=== PATIENT | male | born 1980 | race Caucasian/White ===

== ENCOUNTER 2023-11-26 10:44 | Inpatient (IN) | payer OTHER ==
[~2023-11-26] VITALS: Ht 172.7 cm; Wt 116.7 kg
[2023-11-26] MEDS ORDERED: BLOOD SUGAR DIAGNOSTIC STRIP TEST SCH (11:00)
[2023-11-26] MEDS ORDERED: SODIUM PHOSPHATE 15 MMOL in SODIUM CHLORIDE 0.9% 245 ML IV PRN ×2 (11:00→12:45)
[2023-11-26] MEDS ORDERED: MAGNESIUM 2 G PREMIX 50 ML IV PRN (11:00)
[2023-11-26] MEDS ORDERED: DEXT 5%/0.9% NACL 1,000 ML IV SCH (11:00)
[2023-11-26] MEDS: SODIUM CHLORIDE 0.9% 1,000 ML IV SCH ×2 (11:00→13:43)
[2023-11-26] MEDS ORDERED: KCL 20MEQ/100ML PREMIX 100 ML IV PRN (11:00)
[2023-11-26] MEDS ORDERED: DEXTROSE 50% WATER 50ML SYRINGE IV PRN ×2 (11:00→12:45)
[2023-11-26] MEDS ORDERED: POTASSIUM CHLORIDE 40 MEQ in SODIUM CHLORIDE 0.9% 230 ML IV PRN (11:00)
[2023-11-26] MEDS ORDERED: BLOOD SUGAR DIAGNOSTIC STRIP TEST PRN ×2 (11:00→12:45)
[2023-11-26 11:24] LABS: BG BASE EXCESS -27.8 mmol/L (-2.0-3.0); BG CARBOXYHEMOGLOBIN 0.1 % (0.5-1.5); BG DEOXYHEMOGLOBIN 0.9 % (0.0-5.0); BG FRACTION INSPIRED OXYGEN 100; BG HCO3 ACT 3.5 mmol/L (21.0-28.0); BG METHEMOGLOBIN 0.2 % (0.5-1.5); BG OXYGEN SATURATION 99.1 % (94.0-98.0); BG OXYHEMOGLOBIN 98.8 % (94.0-98.0); BG PCO2 17.8 mmHg (35.0-48.0); BG PH 6.914 (7.350-7.450); BG PO2 216.8 mmHg (83.0-108.0); BG SAMPLE SITE LEFT RADIAL; BG TOTAL HEMOGLOBIN 12.4 g/dL (13.5-17.5); BG VENT MODE MASK - NRB
[2023-11-26 12:02] LABS: CHLORIDE 94 mEq/L (98-107); POTASSIUM 5.3 mEq/L (3.5-5.1); SODIUM 129 mEq/L (136-145)
[2023-11-26 12:03] LABS: CALCIUM 8.8 mg/dL (8.7-10.4)
[2023-11-26 12:08] LABS: CREATININE 2.1 mg/dL (0.6-1.3); UREA NITROGEN BLOOD 12 mg/dL (9-23)
[2023-11-26] MEDS ORDERED: INSULIN REGULAR 100U/100ML PMX 100 ML IV SCH (12:15)
[2023-11-26] MEDS: INSULIN REGULAR (HUMULIN R) 1000UNITS/10ML VIAL IV NR (12:22)
[2023-11-26 12:32] LABS: CARBON DIOXIDE < 10 mEq/L (21-32); GLUCOSE 760 mg/dL (70-105); PHOSPHORUS 8.3 mg/dL (2.5-4.9)
[2023-11-26 12:39] LABS: BETA HYDROXYBUTYRATE 12.8 mMol/L (0.0-0.3)
[2023-11-26] MEDS ORDERED: ACETAMINOPHEN 325MG TABLET PO PRN ×2 (12:45)
[2023-11-26] MEDS ORDERED: SODIUM CHLORIDE 0.45% 1,000 ML IV SCH (12:45)
[2023-11-26] MEDS ORDERED: CLONIDINE 0.1MG TABLET PO PRN (12:45)
[2023-11-26] MEDS: DEXT 5%/0.9% NACL 1,000 ML IV SCH (12:45)
[2023-11-26] MEDS ORDERED: MAGNESIUM/ALUMINUM HYDROXIDE/SIMETHICONE 30ML UDC PO PRN (12:45)
[2023-11-26] MEDS ORDERED: IPRATROPIUM/ALBUTEROL 0.5-3(2.5)MG/3ML NEB HHN PRN (12:45)
[2023-11-26] MEDS ORDERED: INSULIN REGULAR (DRIP) 100 UNITS in SODIUM CHLORIDE 0.9% 99 ML IV SCH (12:45)
[2023-11-26 12:54] LABS: LACTIC ACID 4.5 mmol/L (0.4-2.0)
[2023-11-26] MEDS: INSULIN REGULAR 100U/100ML PMX 100 ML IV SCH (13:14)
[2023-11-26] MEDS: BLOOD SUGAR DIAGNOSTIC STRIP TEST SCH (13:15)
[2023-11-26] MEDS: SODIUM BICARBONATE 8.4% 50MEQ/50ML SYR IV NR ×2 (13:24→16:11)
[2023-11-26 14:09] LABS: BG BASE EXCESS -27.8 mmol/L (-2.0-3.0); BG CARBOXYHEMOGLOBIN 0.3 % (0.5-1.5); BG DEOXYHEMOGLOBIN 3.4 % (0.0-5.0); BG FRACTION INSPIRED OXYGEN 32; BG HCO3 ACT 3.6 mmol/L (21.0-28.0); BG METHEMOGLOBIN 0.1 % (0.5-1.5); BG OXYGEN SATURATION 96.6 % (94.0-98.0); BG OXYHEMOGLOBIN 96.2 % (94.0-98.0); BG PCO2 18.2 mmHg (35.0-48.0); BG PH 6.909 (7.350-7.450); BG PO2 120.7 mmHg (83.0-108.0); BG SAMPLE SITE RIGHT RADIAL; BG VENT MODE NASAL CANNULA
[2023-11-26] MEDS: MAGNESIUM 2 G PREMIX 50 ML IV PRN (14:19)
[2023-11-26 14:32] LABS: CHLORIDE 97 mEq/L (98-107); POTASSIUM 4.8 mEq/L (3.5-5.1); SODIUM 131 mEq/L (136-145)
[2023-11-26 14:33] LABS: CALCIUM 8.1 mg/dL (8.7-10.4)
[2023-11-26 14:38] LABS: CREATININE 2.3 mg/dL (0.6-1.3); UREA NITROGEN BLOOD 12 mg/dL (9-23)
[2023-11-26] MEDS: HYDROCODONE/ACETAMINOPHEN 5/325MG TABLET PO PRN (14:42)
[2023-11-26 14:52] LABS: CARBON DIOXIDE < 10 mEq/L (21-32); GLUCOSE 706 mg/dL (70-105)
[2023-11-26] MEDS ORDERED: NALOXONE HCL 0.4MG/ML VIAL IV PRN (15:00)
[2023-11-26] MEDS: SODIUM CHLORIDE 0.9% 500 ML IV ONE (16:11)
[2023-11-26 16:23] LABS: BASOPHILS % 0.7 % (0.0-2.0); DIFFERENTIAL COMMENT 0; EOSINOPHILS % 0.1 % (0.0-5.0); HEMOGLOBIN. 11.2 g/dL (14.0-18.0); MEAN CORPUSCULAR HEMOGLOBIN 31.1 pg (28.0-32.0); MEAN CORPUSCULAR HGB CONC 29.4 g/dL (31.0-37.0); MEAN CORPUSCULAR VOLUME 105.7 fL (80.0-94.0); MEAN PLATELET VOLUME 7.8 fl (7.4-10.4); MONOCYTES % 6.6 % (2.0-8.0); NEUTROPHILS % 83.6 % (40.0-76.0); PLATELET 374 x1000/uL (130-400); RED CELL DISTRIBUTION WIDTH 16.3 % (11.6-14.6); WHITE BLOOD COUNT 27.5 x1000/uL (4.5-11.0)
[2023-11-26 16:47] LABS: HEPATITIS B SURFACE ANTIGEN NEGATIVE (Negative)
[2023-11-26] MEDS: SODIUM BICARBONATE 150 MEQ in SODIUM CHLORIDE 0.45% 1,000 ML IV NR (17:00)
[2023-11-26 17:08] LABS: CHLORIDE 100 mEq/L (98-107); HEPATITIS A AB IGM NEGATIVE (Negative); POTASSIUM 4.6 mEq/L (3.5-5.1); SODIUM 133 mEq/L (136-145)
[2023-11-26 17:09] LABS: HEPATITIS B CORE AB IGM NEGATIVE (Negative); HEPATITIS C AB NON REACTIVE (Neg) (Negative)
[2023-11-26 17:14] LABS: CREATININE 2.4 mg/dL (0.6-1.3); UREA NITROGEN BLOOD 13 mg/dL (9-23)
[2023-11-26 17:18] LABS: CARBON DIOXIDE < 10 mEq/L (21-32); GLUCOSE 641 mg/dL (70-105)
[2023-11-26 17:19] LABS: PHOSPHORUS 8.5 mg/dL (2.5-4.9)
[2023-11-26 17:40] VITALS: BP 87/36; PULSE 83; RESP 22; TEMP 36.6696; O2SAT 97
[2023-11-26 17:45] VITALS: BP 87/36; PULSE 83; O2SAT 99
[2023-11-26 18:42] LABS: BG BASE EXCESS -23.6 mmol/L (-2.0-3.0); BG CARBOXYHEMOGLOBIN 0.2 % (0.5-1.5); BG FRACTION INSPIRED OXYGEN 32; BG HCO3 ACT 5.7 mmol/L (21.0-28.0); BG METHEMOGLOBIN 0.3 % (0.5-1.5); BG OXYHEMOGLOBIN 96.5 % (94.0-98.0); BG PCO2 21.8 mmHg (35.0-48.0); BG PH 7.032 (7.350-7.450); BG PO2 103.4 mmHg (83.0-108.0); BG SAMPLE SITE RIGHT RADIAL; BG TOTAL HEMOGLOBIN 12.6 g/dL (13.5-17.5); BG VENT MODE NASAL CANNULA
[2023-11-26 18:45] VITALS: BP 93/45; PULSE 83; O2SAT 99
[2023-11-26 19:45] VITALS: BP 103/69; PULSE 97; O2SAT 100
[2023-11-26 20:45] VITALS: BP 99/70; PULSE 94; O2SAT 100
[2023-11-26 20:46] VITALS: BP 99/70; PULSE 94; RESP 17; TEMP 36.6696; O2SAT 100
[2023-11-26 23:35] LABS: CHLORIDE 100 mEq/L (98-107); POTASSIUM 3.5 mEq/L (3.5-5.1); SODIUM 136 mEq/L (136-145)
[2023-11-26 23:36] LABS: CALCIUM 7.7 mg/dL (8.7-10.4); CARBON DIOXIDE 22 mEq/L (21-32)
[2023-11-26 23:41] LABS: UREA NITROGEN BLOOD 8 mg/dL (9-23)
[2023-11-26 23:43] LABS: PHOSPHORUS 2.3 mg/dL (2.5-4.9)
[2023-11-27 00:02] LABS: CREATININE 1.6 mg/dL (0.6-1.3); GLUCOSE 196 mg/dL (70-105)
[2023-11-27 06:41] LABS: BASOPHILS % 0.1 % (0.0-2.0); EOSINOPHILS % 0.5 % (0.0-5.0); HEMATOCRIT. 31.1 % (42.0-52.0); HEMOGLOBIN. 10.5 g/dL (14.0-18.0); LYMPHOCYTES % 19.5 % (20.0-50.0); MEAN CORPUSCULAR HEMOGLOBIN 31.4 pg (28.0-32.0); MEAN CORPUSCULAR HGB CONC 33.8 g/dL (31.0-37.0); MEAN PLATELET VOLUME 6.9 fl (7.4-10.4); MONOCYTES % 7.4 % (2.0-8.0); NEUTROPHILS % 72.5 % (40.0-76.0); PLATELET 208 x1000/uL (130-400); RED BLOOD CELL COUNT 3.34 mill/uL (4.7-6.1); RED CELL DISTRIBUTION WIDTH 14.7 % (11.6-14.6); WHITE BLOOD COUNT 8.7 x1000/uL (4.5-11.0)
[2023-11-27 06:48] LABS: CALCIUM 7.7 mg/dL (8.7-10.4); CARBON DIOXIDE 29 mEq/L (21-32); CHLORIDE 104 mEq/L (98-107); SODIUM 139 mEq/L (136-145)
[2023-11-27 06:53] LABS: CREATININE 1.3 mg/dL (0.6-1.3); GLUCOSE 163 mg/dL (70-105); TRIGLYCERIDE 158 mg/dL (0-150)
[2023-11-27 06:54] LABS: LDL CHOLESTEROL 46 mg/dL (5-100); UREA NITROGEN BLOOD 7 mg/dL (9-23)
[2023-11-27 06:55] LABS: CHOLESTEROL 100 mg/dL (<200); HDL CHOLESTEROL 20 mg/dL (>55)
[2023-11-27 06:58] LABS: THYROID STIMULATING HORMONE 2.09 uIU/mL (0.55-4.78)
[2023-11-27] MEDS: POTASSIUM CHLORIDE 40 MEQ in DEXT 5% WATER 230 ML IV SCH (09:27)
[2023-11-27] MEDS: ENOXAPARIN 40MG/0.4ML SYR SUBCUT SCH (09:34)
[2023-11-27] MEDS ORDERED: DEXTROSE 50% WATER 50ML SYRINGE IV PRN (10:45)
[2023-11-27] MEDS: SODIUM CHLORIDE 0.9% 100 ML IV ONE (11:02)
[2023-11-27 12:00] VITALS: BP 115/71; PULSE 95; RESP 18; TEMP 36.50292; O2SAT 100
[2023-11-27] MEDS: BLOOD SUGAR DIAGNOSTIC STRIP TEST SCH (13:00)
[2023-11-27] MEDS: INSULIN LISPRO 100 UNITS/ML SUBCUT SCH (13:10)
[2023-11-27 16:00] VITALS: BP 106/63; PULSE 92; RESP 18; TEMP 36.50292; O2SAT 100
[2023-11-27 17:11] LABS: PHOSPHORUS 2.8 mg/dL (2.5-4.9)
[2023-11-27] MEDS: MAGNESIUM 2 G PREMIX 50 ML IV NR ×2 (17:49→21:40)
[2023-11-27] MEDS: POTASSIUM CHLORIDE 20MEQ TABLET SR PO NR (17:49)
[2023-11-27] MEDS: INSULIN GLARGINE 100 UNITS/ML SUBCUT NR (17:50)
[2023-11-27 18:08] VITALS: BP 115/71; PULSE 95; RESP 18; TEMP 36.5292
[2023-11-27] MEDS ORDERED: MAGNESIUM 4 G PREMIX 100 ML IV ONE (18:15)
[2023-11-27 20:00] VITALS: BP 110/57; PULSE 96; RESP 18; TEMP 36.72516; O2SAT 93
[2023-11-28] VITALS: BP 108/65; PULSE 96; RESP 16; TEMP 36.61404; O2SAT 95
[2023-11-28 04:00] VITALS: BP 115/68; PULSE 85; RESP 18; TEMP 36.00288; O2SAT 92
[2023-11-28] MEDS: ONDANSETRON HCL 4MG/2ML INJ IV PRN (05:58)
[2023-11-28 07:06] LABS: CARBON DIOXIDE 30 mEq/L (21-32); CHLORIDE 106 mEq/L (98-107); POTASSIUM 3.2 mEq/L (3.5-5.1); SODIUM 142 mEq/L (136-145)
[2023-11-28 07:07] LABS: BASOPHILS % 0.4 % (0.0-2.0); CALCIUM 8.5 mg/dL (8.7-10.4); HEMATOCRIT. 29.4 % (42.0-52.0); HEMOGLOBIN. 9.6 g/dL (14.0-18.0); LYMPHOCYTES % 44.8 % (20.0-50.0); MEAN CORPUSCULAR HEMOGLOBIN 30.7 pg (28.0-32.0); MEAN CORPUSCULAR HGB CONC 32.7 g/dL (31.0-37.0); MEAN CORPUSCULAR VOLUME 93.9 fL (80.0-94.0); MEAN PLATELET VOLUME 7.3 fl (7.4-10.4); MONOCYTES % 7.3 % (2.0-8.0); NEUTROPHILS % 45.5 % (40.0-76.0); PLATELET 178 x1000/uL (130-400); RED BLOOD CELL COUNT 3.13 mill/uL (4.7-6.1); RED CELL DISTRIBUTION WIDTH 14.9 % (11.6-14.6); WHITE BLOOD COUNT 4.8 x1000/uL (4.5-11.0)
[2023-11-28 07:12] LABS: GLUCOSE 118 mg/dL (70-105)
[2023-11-28] MEDS ORDERED: POTASSIUM CHLORIDE 20MEQ TABLET SR PO ONE (07:30)
[2023-11-28 07:31] LABS: UREA NITROGEN BLOOD < 5 mg/dL (9-23)
[2023-11-28 08:00] VITALS: BP 125/62; PULSE 90; RESP 18; TEMP 36.61404; O2SAT 96
[2023-11-28] MEDS: INSULIN GLARGINE 100 UNITS/ML SUBCUT SCH (10:14)
[2023-11-28] MEDS: POTASSIUM CHLORIDE 20MEQ TABLET SR PO NR (11:45)
[2023-11-28 12:05] VITALS: BP 125/60; PULSE 90; TEMP 97.9; O2SAT 95
[2023-11-28] MEDS ORDERED: ENOXAPARIN 30MG/0.3ML SYR SUBCUT SCH (21:00)
== END 2023-11-28 13:00 | disposition home or self-care (01) | DRG 871 ==
LOC: ER 10:44 → EDBEDREQSVC 12:13 → EDBEDREQ 12:13 → EDBEDREQTM 12:13 → EDBEDREQSVC 11-27 10:42 → 7WST 11-27 13:05
PROVIDERS: ADMIT Internal Medicine; ATTEND Internal Medicine
PROC: 5A1D70Z Performance of Urinary Filtration, Intermittent, Less than 6 Hours Per Day (ICD-10-PCS; principal; 2023-11-26)
DX: A41.9 Sepsis, unspecified organism (principal); E11.10 Type 2 diabetes mellitus with ketoacidosis without coma; N18.6 End stage renal disease; E87.3 Alkalosis; I12.0 Hypertensive chronic kidney disease with stage 5 chronic kidney disease or end stage renal disease; E83.39 Other disorders of phosphorus metabolism; E87.5 Hyperkalemia; Z99.2 Dependence on renal dialysis; E11.22 Type 2 diabetes mellitus with diabetic chronic kidney disease; D64.9 Anemia, unspecified; D72.829 Elevated white blood cell count, unspecified; E83.42 Hypomagnesemia; F17.210 Nicotine dependence, cigarettes, uncomplicated; Z91.148 Patient's other noncompliance with medication regimen for other reason; Z79.4 Long term (current) use of insulin
CPT/HCPCS: 36415; 36600; 71045; 80048; 80051; 80061; 82010; 82375; 82803; 82805; 82962; 83036; 83605; 83735; 83930; 84100; 84439; 84443; 85025; 86705; 86709; 87340; 90935; 93005; 99285; J1650; J1815; J2405; J3475; J3480; J3490; J7030; J7042; J7060